=== PATIENT | female | born 1965 | race Hispanic/Latino ===

== ENCOUNTER 2025-03-21 10:31 | Emergency (ER) | payer OTHER, SELFPAY ==
[~2025-03-21] VITALS: Ht 157.5 cm; Wt 61.2 kg
--- NOTE | 2025-03-21 10:55 | ERN ---
ED Note History of Present Illness Stated Complaint: DOG BITE Chief Complaint: Animal Bite Time Seen by MD: 10:35 Dictation: This is a 59-year-old female who presented to the emergency room for evaluation of a dog bite on her left lower extremity with the pain and swelling. Apparent ly it was a friend's dog that bit her last night and she came in today for evaluation. Fever chills or rigors. She stated that she did wash it with soap and water. Temperature 98 pulse 74 respirations 20 blood pressure 142/80 with a pulse oximetry of 99% on room air Allergies: Coded Allergies: No Known Allergies (Unverified Allergy, Unknown, 03/21/25) Past Medical History Past Medical History: No Pertinent History Surgical History: Other Family History: Negative Social History: Negative History: Not Applicable Para: 7 RN Note Reviewed/Agreed w/PFSH: Yes Review of System Dictation Constitutional: Negative for fever,chills, and weight loss Eyes: Negative for injury, pain,redness, and discharge ENT: Negative for injury,pain or swelling Cardiovascular: Negative for chest pain, palpitations, and edema Respiratory: Negative for shortness of breath, cough, and wheezing, Abdomen/GI: Negative for abdominal pain, nausea, vomiting, diarrhea, and constipation Back: Negative for injury and pain : Negative for injury, bleeding and discharge MS/Extremity: Negative for injury and deformity positive for a dog bite on her left lower extremity with a small amount of bleeding Skin: Negative for rash, and discoloration Neuro: Negative for headache, weakness, numbness, tingling, and seizure Psych: Negative for suicide ideation, homicidal ideation, and hallucinations Initial Vital Sign VS Vital Signs Date Time Temp Pulse Resp B/P (MAP) Pulse Ox O2 Delivery O2 Flow Rate FiO2 03/21/25 10:34 98.1 74 20 142/80 99 Room Air 0 03/21/25 11:55 21 Physical Exam Dictation General: awake, alert, NAD Head/Face: Normocephalic, atraumatic Eyes: PERRL, EOMI, vision at baseline ENT: oral cavity clear, TMs clear, no signs of infection Neck: Trachea midline, supple, no nuchal rigidity Cardiovascular: RRR, normal S1/S2, No MRGs, no JVD Respiratory: CTAB, no respiratory distress, No rales or wheezes Abdomen: Soft, non-tender, non-distended, normal bowel sounds, no guarding or rebound. Skin: Warm, dry, normal turgor, no rash MS/Extremity: Pulses equal, no cyanosis, neurovascular intact, FROM about 1-1- 1/2 inches of dog bite wound on the lower extremity left with surrounding mild swelling. Did not see any deep tissue being exposed Neuro: COAx4, GCS 15, strength 5/5, CN 2-12 intact, normal cerebellar exam, normal gait, Psych: Normal behavior, mood, and affect normal Extremities-trace edema without any palpable cords, Homans sign is negative Results (Laboratory/Radiology) Labs Reviewed?: Yes ED Course ED Course Orders Procedure Category Date Status Time Tetanus,Diphtheria PHA 03/21/25 Complete Tox [Adult] (Diphther 11:00 Amox/Clav 875/125mg PHA 03/21/25 Complete Tab (Augmentin 875-1 12:00 Current Medications Medications (Trade) Dose Ordered Sig/Anne Route PRN Reason Start Time Stop Time Status Last Admin Dose Admin Amoxicillin/ Clavulanate Potassium (Augmentin 875-125 Tablet) 1 each ONCE ONCE PO 03/21/25 12:00 03/21/25 12:01 DC 03/21/25 11:54 Tetanus/ Diphtheria Toxoids Adsorbed (DiphthERIA-teTANUS TOXOID [ADULT]/ DECAVAC) 0.5 ml ONCE ONCE IM 03/21/25 11:00 03/21/25 11:02 DC 03/21/25 11:16 Vital Signs Date Time Temp Pulse Resp B/P (MAP) Pulse Ox O2 Delivery O2 Flow Rate FiO2 03/21/25 11:55 98.1 70 20 135/76 98 Room Air* 0 21 03/21/25 10:34 98.1 74 20 142/80 99 Room Air 0 Medical Decision Making MDM Differential diagnosis: Soft tissue injury due to animal bite, wound infection, surrounding cellulitis, crush injury due to bite This is a 59-year-old female who presented to the emergency room for evaluation of a dog bite on her left lower extremity with the pain and swelling. Apparently it was a friend's dog that bit her last night and she came in today for evaluation. Fever chills or rigors. She stated that she did wash it with soap and water. Temperature 98 pulse 74 respirations 20 blood pressure 142/80 with a pulse oximetry of 99% on room air Patient was given antibiotics to cover for any pasteurella bacteria, a tetanus injection. Extensive wound care was also done by the nurses. She will follow up with her primary care physician Previous outside records reviewed: Old ER visits. Risk of complication and/or morbidity or mortality of patient management: None Medications-Per medication reconciliation Need for hospitalization: Patient does not meet criteria for hospitalization. Need for emergency major/minor surgery: No There are no social concerns with this patient. Prescription drug management Prescriptions will include symptomatic care Patient's prior external medical records from other ER visits were reviewed by me as indicated. Prior testing and results from previous visits were reviewed. Prior tests were taken into account with medical decision making and resource utilization, independent historian/historians were used to obtain complete medical history. I independently interpreted the test that were performed, results were reviewed by me and considered findings on radiology if ordered. Medical management and examination interpretation discussions were had by me with other qualified healthcare professionals as indicated for the patient's care. Problem List Problem List: (1) Dog bite of left lower leg (2) Open wound of left lower leg due to dog bite DX & DISP Disposition: Discharge Departure Impression: Primary Impression: Dog bite of left lower leg Additional Impression: Open wound of left lower leg due to dog bite Condition: Stable Additional Instructions: Patient and the caregiver have been informed of all the diagnostic tests and the imaging conducted during the today's visit to the emergency room and has verbalized understanding of the results I have personally reviewed and interpreted all diagnostic exams performed here in the ER today as well as the vital signs documented by the nursing staff. The patient is now being discharged to home and should follow up with the primary care physician or the specialist as directed by the ER staff. Follow-up with primary care provider in 1 to 2 days. Take medications as directed here in the emergency room. Okay to continue home medications unless otherwise discussed during your visit in the emergency room today. Return to your nearest emergency room if symptoms worsen or if there is no improvement. Call 911 if you need immediate assistance. Take Tylenol or Motrin [id number] as needed and if no contraindications are present. Increase oral hydration. A wound culture or urine culture was ordered here in the e mergency room department please follow-up with primary care provider and advise them to get repeat ports from our facility. If you had any Marvin wrap/splints that were applied here, please do not remove them until you see your primary care or specialty. Patient already has a antibiotics-amoxicillin at home and she started taking it and she will complete the course at this time and does not wish to have a new prescription written for her. Referrals: SELF,REFERRAL (PCP) OZ PARKER MD Mar 21, 2025 10:55
[2025-03-21] MEDS: AMOX/CLAV 875/125MG TAB PO ONE (11:54)
[2025-03-21 11:55] VITALS: BP 135/76; PULSE 70; RESP 20; TEMP 98; O2SAT 98
== END 2025-03-21 12:01 | disposition home or self-care (01) ==
LOC: EDH 10:31
DX: S81.852A Open bite, left lower leg, initial encounter (principal); W54.0XXA Bitten by dog, initial encounter; Y93.89 Activity, other specified; Y92.89 Other specified places as the place of occurrence of the external cause; Y99.8 Other external cause status
CPT/HCPCS: 90471; 90714; 99283

== ENCOUNTER 2025-03-27 08:40 | Inpatient (IN) | payer OTHER ==
[~2025-03-27] VITALS: Ht 157.5 cm; Wt 61.2 kg
[2025-03-27 09:13] LABS: NUCLEATED RED BLOOD CELLS 0.0 % (0.0-0.19); PLATELET COUNT (AUTO) 337.0 K/uL (130-400); RED BLOOD CELL COUNT(AUTO) 5.09 MIL/uL (4.00-5.50); RED CELL DISTRIBUTION WIDTH 13.5 % (11.0-15.5); WHITE BLOOD COUNT (AUTO) 6.7 K/uL (4.8-10.8)
--- NOTE | 2025-03-27 09:25 | ERN ---
General Chief Complaint: Wound Check Stated Complaint: WOUND CHECK Time Seen by MD: 08:43 Source: patient History of Present Illness Initial Comments The patient is a 59-year-old female who came to the ER complained of infected wound. As per the patient, she came1 week back after a dog bit her and she was treated in the ER. Today the patient came because her brother said that the wound looked infected and more tender so she came for wound re-evaluation Timing/Duration: 1 week Severity: moderate Allergies: Coded Allergies: No Known Allergies (Unverified Allergy, Unknown, 03/21/25) Past Medical History Past Medical History: No Pertinent History Past Surgical History: None Family History Family History: Negative Social History Social History: Negative Female( History) History: Not Applicable Para: 7 ROS Dictation Wound on left lower leg Constitutional: (-) chills, (-) diaphoresis, (-) fever, (-) malaise, (-) weakness, (-) other documentation EENTM: (-) eye pain, (-) blurred vision, (-) tearing, (-) double vision, (-) ear pain, (-) ear discharge, (-) nose pain, (-) nose congestion, (-) throat pain, (-) Throat swelling, (-) mouth pain, (-) tooth pain, (-) mouth swelling, (-) other documentation Respiratory: (-) cough, (-) orthopnea, (-) short of breath, (-) stridor, (-) wheezing, (-) other documentation Cardiovascular: (-) chest pain, (-) edema, (-) palpitations, (-) syncope, (-) dyspnea on exertion, (-) other documentation Gastrointestinal/Abdominal: (-) nausea, (-) vomiting, (-) diarrhea, (-) abdominal pain, (-) abdominal distention, (-) constipation, (-) rectal bleeding, (-) dark stool/melena, (-) other documentation Skin: (-) laceration, (-) contusion, (-) abrasion, (-) abscess, (-) rash, (-) change in color, (-) change in hair, (-) change in nails, (-) diaphoresis, (-) dryness, (-) other documentation Neuro: (-) altered mental status, (-) headache, (-) syncope, (-) paralysis, (-) numbness, (-) seizure, (-) pre-existing deficit, (-) tremors, (-) weakness, (-) dizziness, (-) slurred speech, (-) vertigo, (-) other documentation Physical Exam General Appearance: (-) no apparent distress, (-) apparent distress, (-) mild distress, (-) moderate distress, (-) severe distress, (-) thin, (-) obese, (-) combative, (-) cachetic, (-) anxious, (-) other documentation Orientation: (+) alert, (+) oriented x 3 Head/Face Trauma: No Ear, Nose, Throat: (+) hearing grossly normal Neck: (+) normal inspection Respiratory: (-) chest non-tender, (-) lungs clear, (-) well ventilated, (-) decreased breath sounds, (-) retractions, (-) abnormal breath sound, (-) crackles, (-) plerual rub, (-) rales, (-) rhonchi, (-) stridor, (-) wheezing, (- ) other documentation Heart: (-) regular, (-) no gallop, (-) murmur, (-) irregular, (-) bradycardia, (-) tachycardia, (-) systolic murmur, (-) diastolic murmur, (-) extra beats, (-) friction rub, (-) gallop/S3, (-) gallop/S4, (-) other documentation Vascular: (-) no edema, (-) normal peripheral pulse, (-) no JVD, (-) abdominal aorta, (-) abnormal peripheral pulse, (-) carotid bruit, (-) edema, (-) JVD, (-) varicose vein, (-) other documentation Gastrointestinal: (-) soft, (-) non-tender, (-) no organomegaly, (-) bowel sound present, (-) distended, (-) tender, (-) abnormal bowel sounds, (-) bowel sound absent, (-) rebound, (-) rooney's sign, (-) guarding, (-) hernia, (-) mass, (-) pulsatile mass, (-) CVA tenderness, (-) hepatomegaly, (-) sp leenomegaly, (-) other documentation, (-) McBerney's, (-) other documentation Extremities Comment Wound on left lower leg Results Laboratory and Microbiology Lab and Micro Result Laboratory Tests Test 03/27/25 09:02 White Blood Count 6.7 K/uL (4.8-10.8) Red Blood Count 5.09 MIL/uL (4.00-5.50) Hemoglobin 13.8 g/dL (12.0-16.0) Hematocrit 43.1 % (36-48) Mean Corpuscular Volume 84.7 fL (79-99) Mean Corpuscular Hemoglobin 27.1 pg (27.0-33.0) Mean Corpuscular Hemoglobin Concent 32.0 g/dL (32.0-36.0) Red Cell Distribution Width 13.5 % (11.0-15.5) Platelet Count 337 K/uL (130-400) Mean Platelet Volume 9.1 fL (7.5-10.5) Nucleated Red Blood Cells 0.0 % (0.0-0.19) Sodium Level 141 mmol/L (136-145) Potassium Level 3.4 mmol/L (3.5-5.1) L Chloride Level 108 mmol/L (101-111) Carbon Dioxide Level 29 mmol/L (21-32) Blood Urea Nitrogen 14 mg/dL (7-18) Creatinine 0.6 mg/dL (0.5-1.0) Glomerular Filtration Rate Calc 104 mL/min (>90) Random Glucose 94 mg/dL (70-105) Total Calcium 8.0 mg/dL (8.5-10.1) L MDM MDM: Differential diagnosis: Dog bite, cellulitis The patient was seen and examined in the ER. The patient had a dog bite in the left lower extremity vertigo and was discharged with oral antibiotics but the wound looks infected and is tender. CBC and BMP ordered Patient was started on IV Zosyn for infected wound. Blood culture and wound culture was sent The plan is to admit the patient for IV antibiotic as she failed oral therapy ED Course Orders Procedure Category Date Status Time Cbc Without LAB 03/27/25 Complete Differential 08:50 Basic Metabolic Panel LAB 03/27/25 Complete 08:50 Blood Cult YANELY 03/27/25 In Process 08:55 Aerobic Culture YANELY 03/27/25 Logged 08:55 Anaerobic Culture YANELY 03/27/25 Logged 08:55 Tibia/Fibula 2vws Lt RAD 03/27/25 Resulted 08:55 Zosyn 3.375gm+Ns 50ml PHA 03/27/25 In Process (Zosyn 3.375gm+Ns 09:00 Current Medications Medications (Trade) Dose Ordered Sig/Anne Route PRN Reason Start Time Stop Time Status Last Admin Dose Admin Piperacillin Sod/ Tazobactam Sod (Zosyn 3.375gm+NS 50ml) 3.375 gm Q8H IV 03/27/25 09:00 04/06/25 08:59 03/27/25 10:15 Vital Signs Date Time Temp Pulse Resp B/P (MAP) Pulse Ox O2 Delivery O2 Flow Rate FiO2 03/27/25 10:23 98.1 62 22 144/73 100 Room Air* 0 21 03/27/25 08:40 97.7 73 20 144/81 98 Room Air DX & DISP Disposition: Inpatient Departure Impression: Primary Impression: Dog bite Additional Impression: Cellulitis Condition: Stable Referrals: SELF,REFERRAL (PCP) I performed a substantive portion of the visit. I have reviewed and personally made and approve the management plan that is documented in the notes by myself with CAITLIN/resident. I acknowledged full responsibility for the patient's management plan. 59-year-old female with a dog bite failed outpatient antibiotics as clinically cellulitis no signs of sepsis. Admitted with IV Zosyn. ROSE RODAS MD Mar 27, 2025 09:25 JESSICA KATE DO Mar 27, 2025 10:33
[2025-03-27 09:30] LABS: CREATININE 0.6 mg/dL (0.5-1.0); GLOMERULAR FILTR. RATE CALC 104.0 mL/min (>90); GLUCOSE,RANDOM 94.0 mg/dL (70-105); SODIUM SERUM 141.0 mmol/L (136-145); UREA NITROGEN, BLOOD 14.0 mg/dL (7-18)
--- NOTE | 2025-03-27 10:05 | HMCIMG ---
EXAM: CR left Tibia and fibula, 2 View. CLINICAL HISTORY: Wound COMPARISON: None provided. FINDINGS: BONES: No acute fracture or aggressive appearing osseous lesion. JOINTS: No dislocation. The joint spaces are normal. SOFT TISSUES: The soft tissues are unremarkable. IMPRESSION: No acute osseous abnormality. /[place]
[2025-03-27] MEDS: ZOSYN 3.375GM +NS 50ML IV SCH (10:15)
[2025-03-27] MEDS ORDERED: MAGNESIUM 2GM PREMIX 50ML 50 ML IV PRN (10:30)
[2025-03-27] MEDS ORDERED: PoTASSium chl 10% ELIXIR 20MEQ 20 MEQ/15 ML UDCUP PO PRN (10:30)
--- NOTE | 2025-03-27 10:35 | HP ---
[facility] HISTORY AND PHYSICAL Date of Service: Mar 27, 2025 Time of Service: 10:35 HISTORY OF PRESENT ILLNESS: 59-year-old female with significant past medical history presented to the hospital secondary to pain and redness in the left mid leg. The patient states around one week ago she was bitten by a dog from her friend's house. She [place] [facility] [place] was discharged on oral amoxicillin. She states she was taking the antibiotics but noted that the wound was getting black-colored and there was associated redness and pain from the area. There was no drainage that she noted. She denied any purulent drainage from the area. Denied any fever, chills, chest pain, shortness of breath, abdominal pain, nausea, vomiting. She received tetanus shot during the ER visit. She states the dog that bit her has been behaving normally at home. Secondary to non improving symptoms patient thereafter came to the hospital for further evaluation Labs were Notable for white count of 6.7, hemoglobin was 13.8, platelet count w as 337 K, sodium was 141, potassium was 3.4, creatinine was 0.6 Patient underwent went x-ray of the left lower extremity which showed no fracture present. REVIEW OF SYSTEMS CONSTITUTIONAL: Denies fevers, chills, or night sweats. No unintentional weight loss reported. NEUROLOGICAL: Denies headache, amaurosis fugax, motor weakness, sensory deficit, vertigo/spinning sensation, gait abnormalities, or tremors. ENT: No hearing loss, otalgia, otorrhea, rhinitis, rhinorrhea, hoarseness, or sore throat. CARDIOVASCULAR: Denies any exertional angina, dyspnea on exertion, orthopnea, paroxysmal nocturnal dyspnea, palpitations, life-threatening arrhythmias, claudication. PULMONARY: Denies any shortness of breath, cough, phlegm/sputum, hemoptysis, pleuritic chest pain. SLEEP: Denies morning headaches, daytime somnolence or napping. Denies difficulty falling asleep, staying asleep, waking from sleep. Denies knowledge of snoring. GASTROINTESTINAL: Denies any type of dysphagia to either liquids or solids. Denies nausea, vomiting, pyrosis, early satiety, abdominal pain, diarrhea, constipation, or changes in stool consistency or caliber. Denies coffee-ground emesis, hematemesis, hematochezia, or melanotic stools. GENITOURINARY: Denies frequency, urgency, nocturia, hematuria or incontinence (Storage/Irritative symptoms.) Low urinary stream, straining to void, urinary intermittency or hesitancy, splitting of the voiding stream, terminal dribbling. ENDOCRINOLOGIC: Denies polyuria, polydipsia, polyphagia or heat/cold intoleranc es. HEMATOLOGIC: Denies thrombophilia/previous clots, or coagulopathy/bleeding disorders. ONCOLOGIC: Denies personal history of malignancy. DERMATOLOGIC: Positive for redness in the left lower extremity PSYCHIATRIC: Denies any suicidal or homicidal ideation. Denies hallucinations. Musculoskeletal: Positive for pain in the left lower extremity PAST MEDICAL HISTORY: Denied any significant past medical history PAST SURGICAL HISTORY: Denied any previous surgical history PAST SOCIAL HISTORY: Denied any smoking, alcohol, drug use FAMILY HISTORY: Denied any pertinent family history Coded Allergies: No Known Allergies (Unverified Allergy, Unknown, 03/21/25) PHYSICAL EXAM GENERAL APPEARANCE: The patient is awake, alert, and oriented, in no acute c ardiopulmonary distress. NEUROLOGICAL: Cranial nerves II-XII grossly intact. Motor is 5/5 in bilateral upper and lower extremities proximal to distal. No sensory deficits. HEENT: Face is symmetric. Pupils are equal and reactive. Extraocular movements are intact. NECK: Supple. No JVD. No thyromegaly. No submental, submandibular, pre- /postauricular, occipital or supraclavicular lymphadenopathy. CHEST: Normal chest expansion. No Telemetry. LUNGS: Absence of any rales, rhonchi or any wheezing. CARDIOVASCULAR: Regular. S1 and S2 normal. No appreciable rubs, murmurs or gallops. ABDOMEN: Soft, nontender, and nondistended. There is no rebound, voluntary guarding, or rigidity. : Deferred. No Fernandez. EXTREMITIES: On the lateral posterior aspect of the left leg there is a wound present. There is necrotic scab on top of the home. There is surrounding erythema which is tender to palpation. No drainage noted no purulent fluid expressed. Area is tender to palpation and warm to touch. SKIN: No skin breakdown. Vital Sign (Last 24 Hours) 03/27/25 10:23 Temp 98.1 Pulse 62 Resp 22 B/P (MAP) 144/73 Pulse Ox 100 O2 Delivery Room Air* O2 Flow Rate 0 FiO2 21 LABS: Laboratory: Test 03/27/25 09:02 Range/Units White Blood Count 6.7 4.8-10.8 K/uL Red Blood Count 5.09 4.00-5.50 MIL/uL Hemoglobin 13.8 12.0-16.0 g/dL Hematocrit 43.1 36-48 % Mean Corpuscular Volume 84.7 79-99 fL Mean Corpuscular Hemoglobin 27.1 27.0-33.0 pg Mean Corpuscular Hemoglobin Concent 32.0 32.0-36.0 g/dL Red Cell Distribution Width 13.5 11.0-15.5 % Platelet Count 337 130-400 K/uL Mean Platelet Volume 9.1 7.5-10.5 fL Nucleated Red Blood Cells 0.0 0.0-0.19 % Sodium Level 141 136-145 mmol/L Potassium Level 3.4 L 3.5-5.1 mmol/L Chloride Level 108 101-111 mmol/L Carbon Dioxide Level 29 21-32 mmol/L Blood Urea Nitrogen 14 7-18 mg/dL Creatinine 0.6 0.5-1.0 mg/dL Glomerular Filtration Rate Calc 104 >90 mL/min Random Glucose 94 70-105 mg/dL Total Calcium 8.0 L 8.5-10.1 mg/dL Current Medications Medications (Trade) Dose Ordered Sig/Anne Route PRN Reason Start Time Stop Time Status Last Admin Dose Admin Piperacillin Sod/ Tazobactam Sod (Zosyn 3.375gm+NS 50ml) 3.375 gm Q8H IV 03/27/25 09:00 04/06/25 08:59 03/27/25 10:15 3.375 GM DIAGNOSTICS / RADIOLOGY: [ ] ASSESSMENT: Complicated cellulitis of the left lower extremity secondary to dog bite nonresolving (Failed outpt antibiotic therapy) Dog bite to the left lower extremity PLAN: - patient to be admitted to medical-surgical unit -in reference to cellulitis of the left lower extremity. Patient will continue on IV Zosyn. She will be started on NS for gentle hydration. Check procalcitonin, CRP. Obtain a CT lower extremity with and without contrast. We will request consultation with ID. We will request consultation with the wound care. Closely monitor symptoms. -obtain home medications she will be reconciled once available -further orders per hospitalization course. Advanced Care Planning Which of the following were discussed: Hospice care: Yes __ No _x_ Therapeutic options: Yes __ No __ Advance directives: Yes __ No __ Other discussions: Discussed with who?: patient (Patient, family or surrogates) Voluntary nature of this service was explained to the patient? Yes _x_ No __ Amount of time spent: 25 minutes ALTON Washington MD, MD Mar 27, 2025 10:35
[2025-03-27] MEDS ORDERED: IOHEXOL-350 75 ML VIAL IV ONE (11:27)
[2025-03-27] MEDS: 0.9%NACL 1000ML 1,000 ML IV SCH (12:08)
--- NOTE | 2025-03-27 18:23 | CONS ---
INFECTIOUS DISEASE CONSULTATION NOTE Date of Service: Mar 27, 2025 Reason for Consultation: Dog bite with non resolving cellulitis. Requesting Physician: Dr. Blackburn. HISTORY OF PRESENT ILLNESS: This is a 59-year-old female patient who sustained a dog bite on the left lower extremity last Sunday. She visited the emergency room last Sunday and at that time patient was taking amoxicillin for a recent tooth extraction x 2 and was instructed to continue the amoxicillin until completed and was discharged. She completed the amoxicillin a couple of days ago but did not see any improvement instead she saw redness around the dog bite and continues with pain and decided to come to the emergency room for evaluation. On examination there is erythema around the dog bite with some necrotic skin and very tender on palpation but no drainage. A CT scan of the left lower extremity has been obtained but pending findings. Patient has been started on Zosyn. We will continue patient on current antibiotic and follow up on the CT of the left lower extremity. REVIEW OF SYSTEMS CONSTITUTIONAL: Denies fever, chills, or fatigue. HEAD/FACE: No signs of trauma. EENT: Denies eye pain, blurred vision, double vision, or light sensitivity. RESPIRATORY: Denies shortness of breath, cough, wheezing CARDIOVASCULAR: Denies chest pain, palpitation, syncope GASTROINTESTINAL/ABDOMINAL: Denies abdominal pain, constipation, diarrhea, nausea or vomiting GENITOURINARY: Denies dysuria or hematuria. MUSCULOSKELETAL: Denies joint pain, tenderness, or trauma. INTEGUMENTARY: Denies rash or itchiness. Left lower extremity pain and redness secondary to dog bite. NEUROLOGICAL/PSYCH: Denies anxiety, depression, heat or cold intolerance. PAST MEDICAL HISTORY: Recent dog bite. PAST SURGICAL HISTORY: x1. Recent Tooth extractions x 2 PAST SOCIAL HISTORY: Denied current use of tobacco, alcohol or any other illicit drug. FAMILY HISTORY: Noncontributory. Coded Allergies: No Known Allergies (Unverified Allergy, Unknown, 03/21/25) PHYSICAL EXAM EYES: Anicteric. Pupils equal and reactive. HENT: No oral thrush seen, moist Oral mucosa. NECK: Supple, no JVD or thyromegaly. LUNGS: Good air entry. No rales, no rhonchi. CARDIOVASCULAR: S1, S2 regular. No murmur heard. ABDOMEN: Soft, non tender, bowel sounds present. CENTRAL NERVOUS SYSTEM: Awake, alert, oriented x 3. SKIN: No rashes, no swelling. Left lower extremity cellulitis. LYMPHATICS: No peripheral lymphadenopathy. MUSCULOSKELETAL: No joint swelling, erythema or tenderness. EXTREMITIES: No cyanosis or clubbing. Lower extremity dog bite with necrosis. BACK: No deformity, no pressure ulcer. GENITOURINARY: No dysuria or hematuria. Vital Sign (Last 24 Hours) 03/27/25 18:18 Temp 97.7 Pulse 64 Resp 18 B/P (MAP) 126/58 Pulse Ox 97 O2 Delivery Room Air* O2 Flow Rate 0 FiO2 21 LABS: Laboratory: Test 03/27/25 09:02 Range/Units White Blood Count 6.7 4.8-10.8 K/uL Red Blood Count 5.09 4.00-5.50 MIL/uL Hemoglobin 13.8 12.0-16.0 g/dL Hematocrit 43.1 36-48 % Mean Corpuscular Volume 84.7 79-99 fL Mean Corpuscular Hemoglobin 27.1 27.0-33.0 pg Mean Corpuscular Hemoglobin Concent 32.0 32.0-36.0 g/dL Red Cell Distribution Width 13.5 11.0-15.5 % Platelet Count 337 130-400 K/uL Mean Platelet Volume 9.1 7.5-10.5 fL Nucleated Red Blood Cells 0.0 0.0-0.19 % Sodium Level 141 136-145 mmol/L Potassium Level 3.4 L 3.5-5.1 mmol/L Chloride Level 108 101-111 mmol/L Carbon Dioxide Level 29 21-32 mmol/L Blood Urea Nitrogen 14 7-18 mg/dL Creatinine 0.6 0.5-1.0 mg/dL Glomerular Filtration Rate Calc 104 >90 mL/min Random Glucose 94 70-105 mg/dL Hemoglobin A1c 5.6 4.0-6.0 % Estimated Average Glucose (eAG) 114 70-126 mg/dL Total Calcium 8.0 L 8.5-10.1 mg/dL Procalcitonin < 0.05 L 0.05-0.5 ng/mL Thyroid Stimulating Hormone (TSH) 1.99 0.36-3.74 uIU/mL ASSESSMENT: Left lower extremity cellulitis. Left lower extremity dog bite with necrosis. Failed outpatient oral antibiotic therapy. PLAN: Continue Zosyn. We will follow up on the CT of the left lower extremity findings. Continue pain management. Tdap was given on previous hospitalization on 03/21/2025. Thank you for allowing ID to participate in the care of this patient. This case was reviewed and discussed with my supervising physician Dr. Angel and the above assessment and plan was formulated and agreed upon. ATTESTATION BY PHYSICIAN I have seen and examined the patient. I reviewed the documentation, medical decision making, and treatment plan as noted by the mid-level provider above. I agree with the findings and plan of care. RANJITH ANGEL MD, [facility] Mar 27, 2025 18:23
--- NOTE | 2025-03-27 19:42 | NUR ---
admission note admitted to room 409 patient awake, alert, ox3, no sob, no c/o pain at this time, ivf infusing well , no family at bedside, teach patient plan of care and expected outcome, patient verbalizes understanding via teach back , call morales at reach
[2025-03-27 20:08] VITALS: BP 132/72; PULSE 69; RESP 20; TEMP 98.4
--- NOTE | 2025-03-27 21:47 | HMCIMG ---
STUDY CT left lower extremity without intravenous contrast HISTORY Nonresolving left lower extremity cellulitis, assess for abscess; left distal Achilles region pain TECHNIQUE Noncontrast CT images of the left lower extremity were acquired. COMPARISON CR left tibia and fibula 2 views dated 03/27/2025 09:15 EST FINDINGS SOFT TISSUES No well-defined fluid collection or discrete abscess is identified in the imaged portions of the left lower leg on this noncontrast study. There is no soft tissue gas. Mild pre-Achilles bursal fat stranding is present. MUSCULOTENDINOUS STRUCTURES There is mild thickening of the distal Achilles tendon with anterior convexity of the distal tendon margin, associated with adjacent pre-Achilles bursal fat stranding, in keeping with Achilles tendinosis/degeneration. No clear full-thickness tendon discontinuity or retracted tear is evident on CT. BONES AND JOINTS No acute fracture or aggressive osseous lesion is identified in the visualized tibia, fibula, or adjacent joints. No CT evidence of osteomyelitis is seen. IMPRESSION * No CT evidence of drainable abscess or soft tissue gas in the left lower extremity in the region of concern on this noncontrast study. * Mild distal Achilles tendinosis with tendon thickening and adjacent pre-Achilles bursal fat stranding, without CT evidence of tendon rupture. /[place]
[2025-03-27] MEDS: FAMOTIDINE 20MG VIAL IV SCH (22:15)
[2025-03-27 23:56] VITALS: BP 124/65; PULSE 61; RESP 18; TEMP 98.4
[2025-03-28] VITALS (9 sets, daily range): BP systolic 112–156; BP diastolic 62–75; PULSE 60–77; RESP 18; TEMP 97.5–98.1; O2SAT 97
[2025-03-28 09:24] LABS: IMMATURE GRANULOCYTE ABSOLUTE 0.01 K/uL (0-1); NUCLEATED RED BLOOD CELLS 0.0 % (0.0-0.19); PLATELET COUNT (AUTO) 263 K/uL (130-400); RED BLOOD CELL COUNT(AUTO) 4.59 MIL/uL (4.00-5.50); RED CELL DISTRIBUTION WIDTH 13.5 % (11.0-15.5); WHITE BLOOD COUNT (AUTO) 4.8 K/uL (4.8-10.8)
[2025-03-28 09:34] LABS: CREATININE 0.5 mg/dL (0.5-1.0); GLOMERULAR FILTR. RATE CALC 109.0 mL/min (>90); GLUCOSE,RANDOM 68.0 mg/dL (70-105); SODIUM SERUM 144.0 mmol/L (136-145); UREA NITROGEN, BLOOD 8.0 mg/dL (7-18)
[2025-03-28 09:39] LABS: ASPARTATE AMINOTRANSFERASE 15.0 U/L (10-37); TOTAL PROTEIN, SERUM 5.6 g/dL (6.0-8.3)
--- NOTE | 2025-03-28 13:00 | PN ---
[facility] PROGRESS NOTE Date of Service: Mar 28, 2025 Time of Service: 12:42 SUBJECTIVE: 59-year-old female with significant past medical history presented to the hospital secondary to pain and redness in the left mid leg. The patient states around one week ago she was bitten by a dog from her friend's house. She was seen in [facility] ER and was discharged on oral amoxicillin. She states she was taking the antibiotics but noted that the wound was getting black-colored and there was associated redness and pain from the area. There was no drainage that she noted. She denied any purulent drainage from the area. Denied any fever, chills, chest pain, shortness of breath, abdominal pain, nausea, vomiting. She received tetanus shot during the ER visit. She states the dog that bit her has been behaving normally at home. Secondary to non improving symptoms patient thereafter came to the hospital for further evaluation Labs were Notable for white count of 6.7, hemoglobin was 13.8, platelet count was 337 K, sodium was 141, potassium was 3.4, creatinine was 0.6 Patient underwent went x-ray of the left lower extremity which showed no fracture present. 03.28.2025: The patient was seen and evaluated in room 409 and reports no active complaints at this time. She denies significant pain and states that the wound appears to be astrid and healing well. The patient reports that at the time of her initial ED visit for the dog bite on sunday , the skin flap was repositioned by nursing staff, and she believes the current blackened area of the wound may be related to the replaced skin flap. She denies photophobia, difficulty swallowing, or problems tolerating oral intake, including liquids. A non-contrast CT scan of the left lower extremity shows no evidence of abscess or soft tissue gas in the region of concern; however, there is mild distal Achilles tendinosis with tendon thickening and adjacent pre-Achilles bursal fat stranding without CT evidence of tendon rupture. Wound care and Infectious Disease are b oth following the patient, and their recommendations will be followed. The patient is currently on Zosyn. Laboratory results are notable for hypokalemia with a potassium level of 3.2, and the patient is on the potassium replacement protocol. REVIEW OF SYSTEMS CONSTITUTIONAL: Denies fevers, chills, or night sweats. No unintentional weight loss reported. NEUROLOGICAL: Denies headache, amaurosis fugax, motor weakness, sensory deficit, vertigo/spinning sensation, gait abnormalities, or tremors. ENT: No hearing loss, otalgia, otorrhea, rhinitis, rhinorrhea, hoarseness, or sore throat. CARDIOVASCULAR: Denies any exertional angina, dyspnea on exertion, orthopnea, paroxysmal nocturnal dyspnea, palpitations, life-threatening arrhythmias, claudication. PULMONARY: Denies any shortness of breath, cough, phlegm/sputum, hemoptysis, pleuritic chest pain. SLEEP: Denies morning headaches, daytime somnolence or napping. Denies difficulty falling asleep, staying asleep, waking from sleep. Denies knowledge of snoring. GASTROINTESTINAL: Denies any type of dysphagia to either liquids or solids. Denies nausea, vomiting, pyrosis, early satiety, abdominal pain, diarrhea, constipation, or changes in stool consistency or caliber. Denies coffee-ground emesis, hematemesis, hematochezia, or melanotic stools. GENITOURINARY: Denies frequency, urgency, nocturia, hematuria or incontinence (Storage/Irritative symptoms.) Low urinary stream, straining to void, urinary intermittency or hesitancy, splitting of the voiding stream, terminal dribbling. ENDOCRINOLOGIC: Denies polyuria, polydipsia, polyphagia or heat/cold intolerances. HEMATOLOGIC: Denies thrombophilia/previous clots, or coagulopathy/bleeding disorders. ONCOLOGIC: Denies personal history of malignancy. DERMATOLOGIC: Positive for redness around the wound in the left lower extremity PSYCHIATRIC: Denies any suicidal or homicidal ideation. Denies hallucinations. Musculoskeletal: Positive for pain in the left lower extremity PHYSICAL EXAM GENERAL APPEARANCE: The patient is awake, alert, and oriented, in no acute cardiopulmonary distress. NEUROLOGICAL: Cranial nerves II-XII grossly intact. Motor is 5/5 in bilateral upper and lower extremities proximal to distal. No sensory deficits. HEENT: Face is symmetric. Pupils are equal and reactive. Extraocular movements are intact. NECK: Supple. No JVD. No thyromegaly. No submental, submandibular, pre- /postauricular, occipital or supraclavicular lymphadenopathy. CHEST: Normal chest expansion. No Telemetry. LUNGS: Absence of any rales, rhonchi or any wheezing. CARDIOVASCULAR: Regular. S1 and S2 normal. No appreciable rubs, murmurs or gallops. ABDOMEN: Soft, nontender, and nondistended. There is no rebound, voluntary guarding, or rigidity. : Deferred. No Fernandez. EXTREMITIES: On the lateral posterior aspect of the left leg there is a wound present. There is necrotic scab on top of the home. There is surrounding erythema which is tender to palpation. No drainage noted no purulent fluid expressed. Area is tender to palpation and warm to touch. SKIN: No skin breakdown. Vital Signs (last 8hr) Date Time Temp Pulse Resp B/P (MAP) Pulse Ox O2 Delivery O2 Flow Rate FiO2 03/28/25 11:59 97.9 77 18 135/75 99 Room Air 03/28/25 07:59 97.9 60 18 139/74 99 Room Air LABS: Laboratory: Test 03/28/25 09:17 03/27/25 09:02 Range/Units White Blood Count 4.8 4.8-10.8 K/uL Red Blood Count 4.59 4.00-5.50 MIL/uL Hemoglobin 12.3 12.0-16.0 g/dL Hematocrit 38.7 36-48 % Mean Corpuscular Volume 84.3 79-99 fL Mean Corpuscular Hemoglobin 26.8 L 27.0-33.0 pg Mean Corpuscular Hemoglobin Concent 31.8 L 32.0-36.0 g/dL Red Cell Distribution Width 13.5 11.0-15.5 % Platelet Count 263 130-400 K/uL Mean Platelet Volume 9.0 7.5-10.5 fL Immature Granulocyte % (Auto) 0.2 0-1 % Neutrophils (%) (Auto) 66.0 40.0-77.0 % Lymphocytes (%) (Auto) 22.2 21.0-51.0 % Monocytes (%) (Auto) 7.9 3.0-13.0 % Eosinophils (%) (Auto) 3.1 0.0-8.0 % Basophils (%) (Auto) 0.6 0.0-5.0 % Neutrophils # (Auto) 3.2 1.8-7.7 K/uL Lymphocytes # (Auto) 1.1 1.0-4.8 K/uL Monocytes # (Auto) 0.4 0.1-1.0 K/uL Eosinophils # (Auto) 0.15 0.00-0.70 K/uL Basophils # (Auto) 0.03 0.00-0.20 K/uL Absolute Immature Granulocyte (auto 0.01 0-1 K/uL Nucleated Red Blood Cells 0.0 0.0-0.19 % Sodium Level 144 136-145 mmol/L Potassium Level 3.2 L 3.5-5.1 mmol/L Chloride Level 112 H 101-111 mmol/L Carbon Dioxide Level 29 21-32 mmol/L Blood Urea Nitrogen 8 7-18 mg/dL Creatinine 0.5 0.5-1.0 mg/dL Glomerular Filtration Rate Calc 109 >90 mL/min Random Glucose 68 L 70-105 mg/dL Total Calcium 7.5 L 8.5-10.1 mg/dL Total Bilirubin 0.1 L 0.2-1.0 mg/dL Aspartate Amino Transf (AST/SGOT) 15 10-37 U/L Alanine Aminotransferase (ALT/SGPT) 13 12-78 U/L Alkaline Phosphatase 60 50-136 U/L Total Protein 5.6 L 6.0-8.3 g/dL Albumin 2.8 L 3.5-5.0 g/dL Hemoglobin A1c 5.6 4.0-6.0 % Estimated Average Glucose (eAG) 114 70-126 mg/dL Procalcitonin < 0.05 L 0.05-0.5 ng/mL Thyroid Stimulating Hormone (TSH) 1.99 0.36-3.74 uIU/mL Current Medications Medications (Trade) Dose Ordered Sig/Anne Route PRN Reason Start Time Stop Time Status Last Admin Dose Admin Acetaminophen (TYLenol 500MG TAB) 500 mg Q6H PRN PO MILD PAIN (1-3) 03/27/25 10:30 04/26/25 10:29 Famotidine (Pepcid 20mg Vial) 20 mg BID IV 03/27/25 21:00 04/26/25 20:59 03/28/25 09:17 20 MG Magnesium Sulfate 50 ml @ 0 mls/hr PROTOCOL PRN IV hypomagnesemia 03/27/25 10:30 04/26/25 10:29 Ondansetron HCl (zoFRAN 4MG INJ) 4 mg Q6H PRN IVP NAUSEA/VOMITING 03/27/25 10:30 04/26/25 10:29 Piperacillin Sod/ Tazobactam Sod (Zosyn 3.375gm+NS 50ml) 3.375 gm Q8H IV 03/27/25 09:00 04/06/25 08:59 03/28/25 09:17 3.375 GM Potassium Chloride 100 ml @ 100 mls/hr AD PRN IV POTASSIUM PROTOCOL 03/27/25 10:30 04/26/25 10:29 Potassium Chloride (K-Dur/Klor-Con 20meq) 20 meq AD PRN PO POTASSIUM PROTOCOL 03/27/25 10:30 04/26/25 10:29 Potassium Chloride (KCl 10% Elixir 20meq/15ml) 20 meq AD PRN PO POTASSIUM PROTOCOL 03/27/25 10:30 04/26/25 10:29 Sodium Chloride 1,000 ml @ 100 mls/hr Q10H IV 03/27/25 10:30 04/26/25 10:29 03/28/25 00:06 100 [facility] / RADIOLOGY: [place] [address] IMAGING REPORT Signed PATIENT: FILEMON CHING MR#: [id number] : 1965 SEX: F AGE: 59 LOCATION: [facility] ORDER 1 STATUS: REG ER REPORT#: [id number] SERVICE 4 REASON: Wound ORDERING PHYSICIAN: ROSE RODAS MD PROCEDURE: TIBFIB LT - TIBIA/FIBULA 2VWS LT EXAM: CR left Tibia and fibula, 2 View. CLINICAL HISTORY: Wound COMPARISON: None provided. FINDINGS: BONES: No acute fracture or aggressive appearing osseous lesion. JOINTS: No dislocation. The joint spaces are normal. SOFT TISSUES: The soft tissues are unremarkable. IMPRESSION: No acute osseous abnormality. /[place] DICTATED BY: SEVEN CLINE Jr., MD DATE: 03/27/251104 ELECTRONICALLY SIGNED BY: SEVEN CLINE Jr., MD DATE: 03/27/251104 [facility] [address] [place] [address] IMAGING REPORT Signed PATIENT: FILEMON CHING MR#: [id number] : 1965 SEX: F AGE: 59 LOCATION: [facility] ORDER 1035 STATUS: ADM IN REPORT#: [id number] SERVICE 1028 REASON: LEFT LOWER EXTREMITY CELLULITIS NON RESOLVING. Assess for abscess ORDERING PHYSICIAN: ALTON BOWEN MD PROCEDURE: LOW EXTWWO - CT LOW EXT W/WO CONTRAST STUDY CT left lower extremity without intravenous contrast HISTORY Nonresolving left lower extremity cellulitis, assess for abscess; left distal Achilles region pain TECHNIQUE Noncontrast CT images of the left lower extremity were acquired. COMPARISON CR left tibia and fibula 2 views dated 03/27/2025 09:15 EST FINDINGS SOFT TISSUES No well-defined fluid collection or discrete abscess is identified in the imaged portions of the left lower leg on this noncontrast study. There is no soft tissue gas. Mild pre-Achilles bursal fat stranding is present. MUSCULOTENDINOUS STRUCTURES There is mild thickening of the distal Achilles tendon with anterior convexity of the distal tendon margin, associated with adjacent pre-Achilles bursal fat stranding, in keeping with Achilles tendinosis/degeneration. No clear full-thickness tendon discontinuity or retracted tear is evident on CT. BONES AND JOINTS No acute fracture or aggressive osseous lesion is identified in the visualized tibia, fibula, or adjacent joints. No CT evidence of osteomyelitis is seen. IMPRESSION * No CT evidence of drainable abscess or soft tissue gas in the left lower extremity in the region of concern on this noncontrast study. * Mild distal Achilles tendinosis with tendon thickening and adjacent pre-Achilles bursal fat stranding, without CT evidence of tendon rupture. /[place] DICTATED BY: SEVEN CLINE Jr., MD DATE: 03/27/252246 ELECTRONICALLY SIGNED BY: SEVEN CLINE Jr., MD DATE: 03/27/252246 ASSESSMENT: Cellulitis of the left lower extremity secondary to dog bite (Failed outpatient antibiotic therapy) Hypokalemia, POA PLAN: Cellulitis of the left lower extremity secondary to dog bite (Failed outpatient antibiotic therapy) * Wound appears to be astrid and healing per patient report, with blackened area likely related to previously replaced skin flap. * Non-contrast CT of the left lower extremity shows no abscess or soft tissue gas ,tendon thickening and adjacent pre-Achilles bursal fat stranding without evidence of rupture.. * Wound care is on board and following. * Will continue local wound care and monitor for signs of infection or necrosis. * Patient is currently on IV Zosyn (Day 2) * Infectious Disease is consulted - will continue antibiotics and adjust per ID recommendations and clinical response. * Procalcitonin is <0.05, will check CRP * Blood culture preliminary report showed no growth - final report is pending Hypokalemia: * Potassium level 3.4 on admission and 3.2 today. * Patient is on potassium replacement per protocol and Will recheck with tomorrows labs. GI Prophylaxis - Famotidine 20 mg BID DVT prophylaxis - Lovenox 40mg BID Diet - Heart healthy diet ATTESTATION BY PHYSICIAN I have seen and examined the patient. I reviewed the documentation, medical decision making, and treatment plan as noted by the resident provider above. I agree with the findings and plan of care. Davian Sharma IV, MD, LAKSHMI MD Mar 28, 2025 13:00
[2025-03-28] MEDS: PoTASSium chloRIDE 20MEQ ER 20 MEQ ERTAB PO PRN (13:40)
--- NOTE | 2025-03-28 16:25 | PN ---
INFECTIOUS DISEASE PROGRESS NOTE Date of Service: Mar 28, 2025 SUBJECTIVE: Cellulitis to the left lower extremity, posterior aspect had some improvement today. The area is less tender. The CT scan of the left lower extremity was negative for abscess. Patient remains afebrile, temperature is 97.9 and a WBC of 4.2. Blood cultures has remained negative. We will continue on Zosyn Q 8 hours. We will plan to discharge tomorrow if stable. PHYSICAL EXAM EYES: Anicteric. Pupils equal and reactive. HENT: No oral thrush seen, moist Oral mucosa. NECK: Supple, no JVD or thyromegaly. LUNGS: Good air entry. No rales, no rhonchi. CARDIOVASCULAR: S1, S2 regular. No murmur heard. ABDOMEN: Soft, non tender, bowel sounds present. CENTRAL NERVOUS SYSTEM: Awake, alert, oriented x 3. SKIN: No rashes, no swelling. Left lower extremity cellulitis. LYMPHATICS: No peripheral lymphadenopathy. MUSCULOSKELETAL: No joint swelling, erythema or tenderness. EXTREMITIES: No cyanosis or clubbing. Lower extremity dog bite with skin necrosis. BACK: No deformity, no pressure ulcer. GENITOURINARY: No dysuria or hematuria. Vital Sign (Last 12 Hours) 03/28/25 03/28/25 03/28/25 07:59 11:59 12:00 Temp 97.9 97.9 97.9 Pulse 60 77 77 Resp 18 18 18 B/P (MAP) 139/74 135/75 135/75 Pulse Ox 99 99 99 O2 Delivery Room Air Room Air Room Air Intake & Output (last 24hrs) 03/27/25 03/27/25 03/28/25 15:00 23:00 07:00 Intake Total 800.0 ml Balance 800.0 ml LABS: Laboratory: Test 03/28/25 09:17 03/27/25 09:02 Range/Units White Blood Count 4.8 4.8-10.8 K/uL Red Blood Count 4.59 4.00-5.50 MIL/uL Hemoglobin 12.3 12.0-16.0 g/dL Hematocrit 38.7 36-48 % Mean Corpuscular Volume 84.3 79-99 fL Mean Corpuscular Hemoglobin 26.8 L 27.0-33.0 pg Mean Corpuscular Hemoglobin Concent 31.8 L 32.0-36.0 g/dL Red Cell Distribution Width 13.5 11.0-15.5 % Platelet Count 263 130-400 K/uL Mean Platelet Volume 9.0 7.5-10.5 fL Immature Granulocyte % (Auto) 0.2 0-1 % Neutrophils (%) (Auto) 66.0 40.0-77.0 % Lymphocytes (%) (Auto) 22.2 21.0-51.0 % Monocytes (%) (Auto) 7.9 3.0-13.0 % Eosinophils (%) (Auto) 3.1 0.0-8.0 % Basophils (%) (Auto) 0.6 0.0-5.0 % Neutrophils # (Auto) 3.2 1.8-7.7 K/uL Lymphocytes # (Auto) 1.1 1.0-4.8 K/uL Monocytes # (Auto) 0.4 0.1-1.0 K/uL Eosinophils # (Auto) 0.15 0.00-0.70 K/uL Basophils # (Auto) 0.03 0.00-0.20 K/uL Absolute Immature Granulocyte (auto 0.01 0-1 K/uL Nucleated Red Blood Cells 0.0 0.0-0.19 % Sodium Level 144 136-145 mmol/L Potassium Level 3.2 L 3.5-5.1 mmol/L Chloride Level 112 H 101-111 mmol/L Carbon Dioxide Level 29 21-32 mmol/L Blood Urea Nitrogen 8 7-18 mg/dL Creatinine 0.5 0.5-1.0 mg/dL Glomerular Filtration Rate Calc 109 >90 mL/min Random Glucose 68 L 70-105 mg/dL Total Calcium 7.5 L 8.5-10.1 mg/dL Total Bilirubin 0.1 L 0.2-1.0 mg/dL Aspartate Amino Transf (AST/SGOT) 15 10-37 U/L Alanine Aminotransferase (ALT/SGPT) 13 12-78 U/L Alkaline Phosphatase 60 50-136 U/L Total Protein 5.6 L 6.0-8.3 g/dL Albumin 2.8 L 3.5-5.0 g/dL Hemoglobin A1c 5.6 4.0-6.0 % Estimated Average Glucose (eAG) 114 70-126 mg/dL Procalcitonin < 0.05 L 0.05-0.5 ng/mL Thyroid Stimulating Hormone (TSH) 1.99 0.36-3.74 uIU/mL ASSESSMENT: Left lower extremity cellulitis, improving. Left lower extremity dog bite with skin necrosis. Failed outpatient oral antibiotic therapy. PLAN: Continue Zosyn. Continue pain management. Tdap was given on previous hospitalization on 03/21/2025. We will plan to discharge to home tomorrow if stable. This case was reviewed and discussed with my supervising physician Dr. Marcelo and the above assessment and plan was formulated and agreed upon. ATTESTATION BY PHYSICIAN I have seen and examined the patient. I reviewed the documentation, medical decision making, and treatment plan as noted by the mid-level provider above. I agree with the findings and plan of care. RANJITH MARCELO MD, [facility] Mar 28, 2025 16:25
--- NOTE | 2025-03-28 17:34 | NUR ---
INITIAL/DCP HOME Met w pt this afternoon to discuss dcp. Prior to admission pt was living at home w her mom. She is independent w ambulation and ADLs. She is able to drive where needed. She works time buyer. She does not own any DME or receive services. Discharge goal is to return home.
[2025-03-28] MEDS: ENOXAPARIN SODIUM 40 MG/0.4 ML SYRINGE SQ SCH (20:25)
[2025-03-29 00:02] VITALS: BP 151/74; PULSE 60; RESP 17; TEMP 97.5
[2025-03-29 03:54] VITALS: BP 124/71; PULSE 59; RESP 16; TEMP 97.5
[2025-03-29 04:03] LABS: IMMATURE GRANULOCYTE ABSOLUTE 0.01 K/uL (0-1); NUCLEATED RED BLOOD CELLS 0.0 % (0.0-0.19); PLATELET COUNT (AUTO) 291 K/uL (130-400); RED BLOOD CELL COUNT(AUTO) 4.59 MIL/uL (4.00-5.50); RED CELL DISTRIBUTION WIDTH 13.5 % (11.0-15.5); WHITE BLOOD COUNT (AUTO) 4.2 K/uL (4.8-10.8)
[2025-03-29 04:25] LABS: CREATININE 0.6 mg/dL (0.5-1.0); GLOMERULAR FILTR. RATE CALC 104 mL/min (>90); GLUCOSE,RANDOM 89 mg/dL (70-105); SODIUM SERUM 149 mmol/L (136-145); UREA NITROGEN, BLOOD 8 mg/dL (7-18)
[2025-03-29 07:54] VITALS: BP 126/67; PULSE 70; RESP 18; TEMP 97.6
[2025-03-29 12:07] VITALS: BP 139/69; PULSE 79; RESP 19; TEMP 98
--- NOTE | 2025-03-29 13:02 | DS ---
Discharge Summary Hospital Course Summary: The patient presented with worsening redness and pain of the left mid-leg one week after a dog bite. She was initially treated in the emergency department and discharged on oral amoxicillin; however, symptoms progressed with skin discoloration and tenderness, prompting readmission. Imaging of the left lower extremity showed no abscess, no soft tissue gas, and no fracture. CT demonstrated only mild distal Achilles tendinosis without rupture. Laboratory studies were unremarkable for systemic infection, with normal white blood cell count, negative procalcitonin, and blood cultures showing no growth. The blackened area of the wound was felt to be related to a previously repositioned skin flap rather than necrosis. She was treated with IV Zosyn with clinical improvement. Wound Care and Infectious Disease were consulted. Hypokalemia was addressed with replacement. Given clinical stability and improvement, Infectious Disease recommended tra nsition to oral antibiotics and discharge. Roving Teller(s): ASSESSMENT: Left lower extremity cellulitis, improving. Left lower extremity dog bite with skin necrosis. Failed outpatient oral antibiotic therapy. PLAN: Continue Zosyn. Continue pain management. Tdap was given on previous hospitalization on 03/21/2025. We will plan to discharge to home tomorrow if stable. This case was reviewed and discussed with my supervising physician Dr. Angel and the above assessment and plan was formulated and agreed upon. Procedure(s): [address] [address] IMAGING REPORT Signed PATIENT: FILEMON CHING MR#: [id number] : 1965 SEX: F AGE: 59 LOCATION: [facility] ORDER 1 STATUS: [facility] REPORT#: [id number] SERVICE 4 REASON: Wound ORDERING PHYSICIAN: ROSE RODAS MD PROCEDURE: TIBFIB LT - TIBIA/FIBULA 2VWS LT EXAM: CR left Tibia and fibula, 2 View. CLINICAL HISTORY: Wound COMPARISON: None provided. FINDINGS: BONES: No acute fracture or aggressive appearing osseous lesion. JOINTS: No dislocation. The joint spaces are normal. SOFT TISSUES: The soft tissues are unremarkable. IMPRESSION: No acute osseous abnormality. /[place] DICTATED BY: SEVEN CLINE Jr., MD DATE: 03/27/251104 ELECTRONICALLY SIGNED BY: SEVEN CLINE Jr., MD DATE: 03/27/251104 [place] [address] [place] [id number] IMAGING REPORT Signed PATIENT: FILEMON CHING MR#: [id number] : 1965 SEX: F AGE: 59 LOCATION: [facility] ORDER 1035 STATUS: ADM IN REPORT#: [id number] SERVICE 1028 REASON: LEFT LOWER EXTREMITY CELLULITIS NON RESOLVING. Assess for abscess ORDERING PHYSICIAN: ALTON BOWEN MD PROCEDURE: LOW EXTWWO - CT LOW EXT W/WO CONTRAST STUDY CT left lower extremity without intravenous contrast HISTORY Nonresolving left lower extremity cellulitis, assess for abscess; left distal Achilles region pain TECHNIQUE Noncontrast CT images of the left lower extremity were acquired. COMPARISON CR left tibia and fibula 2 views dated 03/27/2025 09:15 EST FINDINGS SOFT TISSUES No well-defined fluid collection or discrete abscess is identified in the imaged portions of the left lower leg on this noncontrast study. There is no soft tissue gas. Mild pre-Achilles bursal fat stranding is present. MUSCULOTENDINOUS STRUCTURES There is mild thickening of the distal Achilles tendon with anterior convexity of the distal tendon margin, associated with adjacent pre-Achilles bursal fat stranding, in keeping with Achilles tendinosis/degeneration. No clear full-thickness tendon discontinuity or retracted tear is evident on CT. BONES AND JOINTS No acute fracture or aggressive osseous lesion is identified in the visualized tibia, fibula, or adjacent joints. No CT evidence of osteomyelitis is seen. IMPRESSION * No CT evidence of drainable abscess or soft tissue gas in the left lower extremity in the region of concern on this noncontrast study. * Mild distal Achilles tendinosis with tendon thickening and adjacent pre-Achilles bursal fat stranding, without CT evidence of tendon rupture. /[place] DICTATED BY: SEVEN CLINE Jr., MD DATE: 03/27/252246 ELECTRONICALLY SIGNED BY: SEVEN CLINE Jr., MD DATE: 03/27/252246 Assessment/Plan: ASSESSMENT: Cellulitis of the left lower extremity secondary to dog bite (Failed outpatient antibiotic therapy) Hypokalemia, POA Discharge Instructions: Dog Bite / Cellulitis Take doxycycline 100 mg twice daily for 7 days (complete full course). Keep the wound clean and dry. Perform local wound care as instructed. Monitor daily for increasing redness, swelling, drainage, fever, or worsening pain. Potassium Potassium was low during admission and corrected. Eat potassium-rich foods (bananas, oranges, spinach) unless told otherwise. Activity Normal activity as tolerated. Avoid trauma or pressure to the affected leg. Follow-Up Primary Care Physician: within 1 week Wound Care: as scheduled, if arranged When to Seek Immediate Care Go to the ER if you develop: Fever or chills Rapidly worsening redness or swelling Pus or foul-smelling drainage Severe pain or skin turning black Difficulty walking Home Medications: No Active Prescriptions or Reported Meds Medication Profile: No Active Prescriptions or Reported Meds Time spent arranging discharge: 1-30 minutes ATTESTATION BY PHYSICIAN I have seen and examined the patient. I reviewed the documentation, medical decision making, and treatment plan as noted by the resident physician above. I agree with the findings and plan of care. Davian Sharma MD, HEMA MD Mar 29, 2025 13:02
--- NOTE | 2025-03-29 16:01 | PN ---
INFECTIOUS DISEASE PROGRESS NOTE Date of Service: Mar 29, 2025 SUBJECTIVE: Patient was seen and examined at bedside in room 409. Patient is awake, alert and oriented. Patient has remained afebrile with no elevated WBC. The left lower extremity cellulitis has improved. Patient's stated the pain is less. No reports of nausea or vomiting. From Infectious Disease standpoint patient is cleared for discharge. Prescription was written for doxycycline 100 mg p.o. b.i.d. x7 days. PHYSICAL EXAM EYES: Anicteric. Pupils equal and reactive. HENT: No oral thrush seen, moist Oral mucosa. NECK: Supple, no JVD or thyromegaly. LUNGS: Good air entry. No rales, no rhonchi. CARDIOVASCULAR: S1, S2 regular. No murmur heard. ABDOMEN: Soft, non tender, bowel sounds present. CENTRAL NERVOUS SYSTEM: Awake, alert, oriented x 3. SKIN: No rashes, no swelling. Left lower extremity cellulitis. LYMPHATICS: No peripheral lymphadenopathy. MUSCULOSKELETAL: No joint swelling, erythema or tenderness. EXTREMITIES: No cyanosis or clubbing. Lower extremity dog bite with skin necrosis. BACK: No deformity, no pressure ulcer. GENITOURINARY: No dysuria or hematuria. Vital Sign (Last 12 Hours) 03/29/25 03/29/25 07:54 12:07 Temp 97.5 98.1 Pulse 70 79 Resp 18 19 B/P (MAP) 126/67 139/69 Pulse Ox 97 95 O2 Delivery Room Air Room Air Intake & Output (last 24hrs) 03/28/25 03/28/25 03/29/25 15:00 23:00 07:00 Intake Total 500 ml 2460.0 ml 240 ml Output Total 200 ml Balance 300 ml 2460.0 ml 240 ml LABS: Laboratory: Test 03/29/25 03:40 03/28/25 09:17 Range/Units White Blood Count 4.2 L 4.8-10.8 K/uL Red Blood Count 4.59 4.00-5.50 MIL/uL Hemoglobin 12.4 12.0-16.0 g/dL Hematocrit 38.6 36-48 % Mean Corpuscular Volume 84.1 79-99 fL Mean Corpuscular Hemoglobin 27.0 27.0-33.0 pg Mean Corpuscular Hemoglobin Concent 32.1 32.0-36.0 g/dL Red Cell Distribution Width 13.5 11.0-15.5 % Platelet Count 291 130-400 K/uL Mean Platelet Volume 9.2 7.5-10.5 fL Immature Granulocyte % (Auto) 0.2 0-1 % Neutrophils (%) (Auto) 49.1 40.0-77.0 % Lymphocytes (%) (Auto) 36.9 21.0-51.0 % Monocytes (%) (Auto) 8.3 3.0-13.0 % Eosinophils (%) (Auto) 4.8 0.0-8.0 % Basophils (%) (Auto) 0.7 0.0-5.0 % Neutrophils # (Auto) 2.1 1.8-7.7 K/uL Lymphocytes # (Auto) 1.6 1.0-4.8 K/uL Monocytes # (Auto) 0.4 0.1-1.0 K/uL Eosinophils # (Auto) 0.20 0.00-0.70 K/uL Basophils # (Auto) 0.03 0.00-0.20 K/uL Absolute Immature Granulocyte (auto 0.01 0-1 K/uL Nucleated Red Blood Cells 0.0 0.0-0.19 % Sodium Level 149 H 136-145 mmol/L Potassium Level 3.8 3.5-5.1 mmol/L Chloride Level 112 H 101-111 mmol/L Carbon Dioxide Level 29 21-32 mmol/L Blood Urea Nitrogen 8 7-18 mg/dL Creatinine 0.6 0.5-1.0 mg/dL Glomerular Filtration Rate Calc 104 >90 mL/min Random Glucose 89 70-105 mg/dL Total Calcium 8.0 L 8.5-10.1 mg/dL Magnesium Level 2.30 1.80-2.40 mg/dL C-Reactive Protein, Quantitative < 0.50 L 0.5-3.0 mg/L Total Bilirubin 0.1 L 0.2-1.0 mg/dL Aspartate Amino Transf (AST/SGOT) 15 10-37 U/L Alanine Aminotransferase (ALT/SGPT) 13 12-78 U/L Alkaline Phosphatase 60 50-136 U/L Total Protein 5.6 L 6.0-8.3 g/dL Albumin 2.8 L 3.5-5.0 g/dL ASSESSMENT: Left lower extremity cellulitis, improved. Left lower extremity dog bite with skin necrosis. Failed outpatient oral antibiotic therapy. PLAN: From Infectious Disease standpoint patient is cleared for discharge. Prescription was written for doxycycline 100 mg p.o. b.i.d. x7 days. This case was reviewed and discussed with my supervising physician Dr. Marcelo and the above assessment and plan was formulated and agreed upon. ATTESTATION BY PHYSICIAN I have seen and examined the patient. I reviewed the documentation, medical decision making, and treatment plan as noted by the mid-level provider above. I agree with the findings and plan of care. RANJITH MARCELO MD, MIRTA L [facility] Mar 29, 2025 16:01
== END 2025-03-29 13:50 | disposition home or self-care (01) | DRG 603 ==
LOC: EDH 08:40 → EDHIP 10:28 → 4BH 18:50
PROVIDERS: ADMIT Internal Medicine; ATTEND Internal Medicine
DX: L03.116 Cellulitis of left lower limb (principal); I96 Gangrene, not elsewhere classified; E87.6 Hypokalemia; S81.852A Open bite, left lower leg, initial encounter; M67.879 Other specified disorders of synovium and tendon, unspecified ankle and foot; W54.0XXA Bitten by dog, initial encounter
CPT/HCPCS: 36415; 73590; 73702; 80048; 80053; 83036; 83735; 84145; 84443; 85025; 85027; 86140; 87040; 99285; G0378; J1650; J2543; Q9967; J1308